=== PATIENT | female | born 1990 | race Caucasian/White ===

== ENCOUNTER 2017-06-21 11:42 | Emergency (ER) | payer MEDICAID, OTHER | END 2017-06-21 14:31 | disposition home or self-care (01) | LOC: E/R 11:42 | DX: R30.0 Dysuria (principal) | CPT/HCPCS: 99283; Z7502 ==

== ENCOUNTER 2017-11-30 13:55 | Emergency (ER) | payer MEDICAID, OTHER ==
[2017-11-30 15:41] LABS: ADD MAN DIFF? NO
[2017-11-30 15:44] LABS: BASOPHILS % 0.2 % (0.0-2.0); EOSINOPHILS % 0.4 % (0.0-7.0); HEMATOCRIT 40.9 % (37.0-47.0); HEMOGLOBIN 14.2 g/dl (12.0-16.0); LYMPHOCYTES # 2.3 10^3/ul (0.8-2.9); LYMPHOCYTES % 27.1 % (15.0-51.0); MEAN CORPUSCULAR HEMOGLOBIN 30.1 pg (29.0-33.0); MEAN CORPUSCULAR HGB CONC 34.7 g/dl (32.0-37.0); MEAN CORPUSCULAR VOLUME 86.7 fl (82.0-101.0); MEAN PLATELET VOLUME 9.4 fl (7.4-10.4); MONOCYTE # 0.5 10^3/ul (0.3-0.9); MONOCYTES % 6.1 % (0.0-11.0); NEUTROPHIL # 5.5 10^3/ul (1.6-7.5); PLATELET COUNT 261 10^3/UL (140-415); RED BLOOD COUNT 4.72 10^6/ul (4.20-5.40); RED CELL DISTRIBUTION WIDTH 12.3 % (11.5-14.5)
[2017-11-30 15:44] LABS: WHITE BLOOD COUNT 8.3 10^3/ul (4.8-10.8)
[2017-11-30 15:54] LABS: ADD UMIC YES; UR ASCORBIC ACID NEGATIVE (NEGATIVE); UR BACTERIA FEW /HPF (NONE SEEN); UR BILIRUBIN (Dip) NEGATIVE (NEGATIVE); UR BLOOD (Dip) 3+ mg/dL (NEGATIVE); UR CLARITY CLOUDY (CLEAR); UR COLOR RED (YELLOW); UR GLUCOSE (Dip) NEGATIVE (NEGATIVE); UR KETONES (Dip) NEGATIVE (NEGATIVE); UR LEUKOCYTE ESTERASE (Dip) NEGATIVE Leu/ul (NEGATIVE); UR NITRITE (Dip) NEGATIVE (NEGATIVE); UR NONSQUAMOUS EPITHELIAL CELL 2 /HPF (NONE SEEN); UR RBC > 182 /HPF (0-5); UR SPECIFIC GRAVITY (Dip) 1.025 (1.003-1.030); UR TOTAL PROTEIN (Dip) 2+ mg/dl (NEGATIVE); UR UROBILINOGEN (Dip) NEGATIVE (NEGATIVE); UR WBC > 182 /HPF (0-5)
== END 2017-11-30 16:59 | disposition home or self-care (01) ==
LOC: FTE 13:55
DX: O20.9 Hemorrhage in early pregnancy, unspecified (principal); R10.2 Pelvic and perineal pain; Z3A.00 Weeks of gestation of pregnancy not specified
CPT/HCPCS: 36415; 76801; 76817; 81001; 84702; 85025; 86900; 86901; 99284-25

== ENCOUNTER 2017-12-31 12:26 | Emergency (ER) | payer MEDICAID ==
[2017-12-31] MEDS: HYDROCODONE/APAP (5/325) TAB PO (13:19)
[2017-12-31 13:21] LABS: ADD MAN DIFF? NO
[2017-12-31 13:25] LABS: BASOPHILS % 0.2 % (0.0-2.0); EOSINOPHILS # 0.1 10^3/ul (0.0-0.5); EOSINOPHILS % 1.7 % (0.0-7.0); HEMATOCRIT 37.5 % (37.0-47.0); LYMPHOCYTES # 2.6 10^3/ul (0.8-2.9); LYMPHOCYTES % 40.5 % (15.0-51.0); MEAN CORPUSCULAR HGB CONC 34.7 g/dl (32.0-37.0); MEAN CORPUSCULAR VOLUME 86.6 fl (82.0-101.0); MEAN PLATELET VOLUME 9.2 fl (7.4-10.4); MONOCYTE # 0.3 10^3/ul (0.3-0.9); MONOCYTES % 5.2 % (0.0-11.0); NEUTROPHIL # 3.4 10^3/ul (1.6-7.5); NEUTROPHILS % 52.2 % (39.0-77.0); PLATELET COUNT 268 10^3/UL (140-415); RED BLOOD COUNT 4.33 10^6/ul (4.20-5.40); RED CELL DISTRIBUTION WIDTH 11.8 % (11.5-14.5)
[2017-12-31 13:25] LABS: WHITE BLOOD COUNT 6.5 10^3/ul (4.8-10.8)
[2017-12-31 13:33] LABS: ADD UMIC YES; UR ASCORBIC ACID NEGATIVE (NEGATIVE); UR BACTERIA FEW /HPF (NONE SEEN); UR BILIRUBIN (Dip) NEGATIVE (NEGATIVE); UR BLOOD (Dip) 3+ mg/dL (NEGATIVE); UR CLARITY SLIGHTLY CLOUDY (CLEAR); UR COLOR YELLOW (YELLOW); UR GLUCOSE (Dip) NEGATIVE (NEGATIVE); UR KETONES (Dip) NEGATIVE (NEGATIVE); UR LEUKOCYTE ESTERASE (Dip) NEGATIVE Leu/ul (NEGATIVE); UR MUCUS FEW /HPF (NONE SEEN); UR NITRITE (Dip) NEGATIVE (NEGATIVE); UR RBC > 182 /HPF (0-5); UR SPECIFIC GRAVITY (Dip) 1.016 (1.003-1.030); UR SQUAMOUS EPITHELIAL CELL FEW /HPF (FEW); UR TOTAL PROTEIN (Dip) NEGATIVE (NEGATIVE); UR UROBILINOGEN (Dip) NEGATIVE (NEGATIVE); UR WBC 10 /HPF (0-5)
== END 2017-12-31 15:25 | disposition home or self-care (01) ==
LOC: FTE 12:26
DX: N93.9 Abnormal uterine and vaginal bleeding, unspecified (principal); R10.2 Pelvic and perineal pain
CPT/HCPCS: 76830; 81001; 81025; 85025; 99284-25

== ENCOUNTER → 2018-11-05 | Emergency (ER) | payer BC, OTHER, MEDICAID ==
[2018-11-05] MEDS: ACETAMINOPHEN 325 MG TAB PO (19:30)
[2018-11-05 19:58] LABS: ADD MAN DIFF? NO
[2018-11-05 20:10] LABS: BASOPHILS % 0.3 % (0.0-2.0); EOSINOPHILS # 0.1 10^3/ul (0.0-0.5); EOSINOPHILS % 1.5 % (0.0-7.0); HEMATOCRIT 39.6 % (37.0-47.0); HEMOGLOBIN 13.2 g/dl (12.0-16.0); LYMPHOCYTES # 2.7 10^3/ul (0.8-2.9); MEAN CORPUSCULAR HEMOGLOBIN 29.5 pg (29.0-33.0); MEAN CORPUSCULAR HGB CONC 33.3 g/dl (32.0-37.0); MEAN CORPUSCULAR VOLUME 88.6 fl (82.0-101.0); MEAN PLATELET VOLUME 9.5 fl (7.4-10.4); MONOCYTE # 0.4 10^3/ul (0.3-0.9); MONOCYTES % 5.5 % (0.0-11.0); NEUTROPHIL # 4.5 10^3/ul (1.6-7.5); NEUTROPHILS % 57.4 % (39.0-77.0); PLATELET COUNT 272 10^3/UL (140-415); RED BLOOD COUNT 4.47 10^6/ul (4.20-5.40); RED CELL DISTRIBUTION WIDTH 12.5 % (11.5-14.5)
[2018-11-05 20:10] LABS: WHITE BLOOD COUNT 7.8 10^3/ul (4.8-10.8)
[2018-11-05 20:26] LABS: ADD UMIC YES; UR ASCORBIC ACID NEGATIVE (NEGATIVE); UR BILIRUBIN (Dip) NEGATIVE (NEGATIVE); UR BLOOD (Dip) 3+ mg/dL (NEGATIVE); UR CLARITY SLIGHTLY CLOUDY (CLEAR); UR COLOR YELLOW (YELLOW); UR GLUCOSE (Dip) NEGATIVE (NEGATIVE); UR KETONES (Dip) NEGATIVE (NEGATIVE); UR LEUKOCYTE ESTERASE (Dip) TRACE Leu/ul (NEGATIVE); UR NITRITE (Dip) NEGATIVE (NEGATIVE); UR RBC > 182 /HPF (0-5); UR SPECIFIC GRAVITY (Dip) 1.008 (1.003-1.030); UR SQUAMOUS EPITHELIAL CELL FEW /HPF (FEW); UR TOTAL PROTEIN (Dip) NEGATIVE (NEGATIVE); UR UROBILINOGEN (Dip) NEGATIVE (NEGATIVE); UR WBC 9 /HPF (0-5)
== END | disposition home or self-care (01) ==
LOC: FTE 15:41
DX: O20.9 Hemorrhage in early pregnancy, unspecified (principal); R10.2 Pelvic and perineal pain; Z3A.10 10 weeks gestation of pregnancy
CPT/HCPCS: 36415; 76801; 76817; 81001; 84702; 84703; 85025; 86900; 86901; 87086; 99284-25

== ENCOUNTER 2018-12-05 20:42 | Emergency (ER) | payer BC ==
[2018-12-05 23:13] LABS: ADD MAN DIFF? NO
[2018-12-05 23:17] LABS: WHITE BLOOD COUNT 6.8 10^3/ul (4.8-10.8)
[2018-12-05 23:17] LABS: BASOPHILS % 0.3 % (0.0-2.0); EOSINOPHILS # 0.2 10^3/ul (0.0-0.5); EOSINOPHILS % 2.9 % (0.0-7.0); HEMATOCRIT 37.1 % (37.0-47.0); HEMOGLOBIN 12.8 g/dl (12.0-16.0); LYMPHOCYTES % 44.3 % (15.0-51.0); MEAN CORPUSCULAR HEMOGLOBIN 30.3 pg (29.0-33.0); MEAN CORPUSCULAR HGB CONC 34.5 g/dl (32.0-37.0); MEAN CORPUSCULAR VOLUME 87.9 fl (82.0-101.0); MEAN PLATELET VOLUME 9.3 fl (7.4-10.4); MONOCYTE # 0.4 10^3/ul (0.3-0.9); NEUTROPHIL # 3.2 10^3/ul (1.6-7.5); NEUTROPHILS % 46.4 % (39.0-77.0); PLATELET COUNT 307 10^3/UL (140-415); RED BLOOD COUNT 4.22 10^6/ul (4.20-5.40); RED CELL DISTRIBUTION WIDTH 12.4 % (11.5-14.5)
[2018-12-05 23:24] LABS: ADD UMIC YES; UR ASCORBIC ACID NEGATIVE (NEGATIVE); UR BILIRUBIN (Dip) NEGATIVE (NEGATIVE); UR BLOOD (Dip) 3+ mg/dL (NEGATIVE); UR CLARITY SLIGHTLY CLOUDY (CLEAR); UR COLOR YELLOW (YELLOW); UR GLUCOSE (Dip) NEGATIVE (NEGATIVE); UR KETONES (Dip) NEGATIVE (NEGATIVE); UR LEUKOCYTE ESTERASE (Dip) NEGATIVE Leu/ul (NEGATIVE); UR MUCUS MODERATE /HPF (NONE SEEN); UR NITRITE (Dip) NEGATIVE (NEGATIVE); UR RBC 7 /HPF (0-5); UR SPECIFIC GRAVITY (Dip) 1.019 (1.003-1.030); UR SQUAMOUS EPITHELIAL CELL FEW /HPF (FEW); UR TOTAL PROTEIN (Dip) 1+ mg/dl (NEGATIVE); UR UROBILINOGEN (Dip) NEGATIVE (NEGATIVE); UR WBC 6 /HPF (0-5)
[2018-12-05 23:31] LABS: ANION GAP 7 (5-13); BLOOD UREA NITROGEN 16 mg/dl (7-20); CALCIUM 9.4 mg/dl (8.4-10.2); CARBON DIOXIDE 28 mmol/L (21-31); CHLORIDE 104 mmol/L (97-110); CREATININE 0.83 mg/dl (0.44-1.00); Estimated GFR > 60 mL/min (>60); GLUCOSE 92 mg/dl (70-220); POTASSIUM 4.1 mmol/L (3.5-5.1); SODIUM 139 mmol/L (135-144)
[2018-12-05 23:36] LABS: INR 0.93; PROTIME 12.6 Sec (11.9-14.9)
== END 2018-12-06 02:40 | disposition home or self-care (01) ==
LOC: FTE 12-06 02:40
DX: O20.9 Hemorrhage in early pregnancy, unspecified (principal); Z3A.00 Weeks of gestation of pregnancy not specified
CPT/HCPCS: 36415; 76801; 76817; 80048; 81001; 84702; 85025; 85610; 85730; 99284-25